=== PATIENT | male | born 1955 | race American Indian/Alaskan Native ===

== ENCOUNTER 2021-08-06 09:03 | Day surgery (SDC) | payer BC, OTHER ==
[2021-08-06] MEDS ORDERED: Dexamethasone 4 MG/ML SDV IV ONE (09:04)
[2021-08-06] MEDS ORDERED: Midazolam 1 MG/ML 2 ML SDV IV ONE (09:04)
[2021-08-06] MEDS ORDERED: Sodium Chloride 0.9% 10 ML Syringe IV ONE (09:04)
[2021-08-06] MEDS ORDERED: Moxifloxacin 0.5% Ophth Soln 3 ML Bottle EYELF ONE (10:15)
[2021-08-06] MEDS ORDERED: Povidone-Iodine 5% Sterile Ophth Soln 30 ML Bottle EYELF ONE ×2 (10:15→10:55)
[2021-08-06] MEDS ORDERED: Phenylephrine 10% Ophth Soln 5 ML Bot EYELF ONE (10:15)
[2021-08-06] MEDS ORDERED: Proparacaine 0.5% Ophth Soln 15 ML Bottle EYELF ONE (10:15)
[2021-08-06] MEDS ORDERED: Ondansetron 4 MG/2 ML SDV IVPUSH PRN (10:15)
[2021-08-06] MEDS ORDERED: Tropicamide 1% Ophth Soln 15 ML Bottle EYELF ONE (10:15)
[2021-08-06] MEDS ORDERED: Timolol Maleate 0.5% Ophth Soln 5 ML Bottle EYELF ONE (10:15)
[2021-08-06] MEDS ORDERED: Acetaminophen/Codeine 300-30 MG Tab PO PRN (10:15)
[2021-08-06] MEDS ORDERED: Cataract Ophth Solution EYELF ONE (10:15)
[2021-08-06] MEDS ORDERED: Sodium Chloride 0.9% 10 ML Syringe FLUSH PRN (10:15)
[2021-08-06] MEDS ORDERED: Acetaminophen 325 MG Tab PO PRN (10:15)
[2021-08-06] MEDS ORDERED: Tetracaine HCl/PF 0.5% 4 ML Bottle EYELF ONE (10:55)
[2021-08-06] MEDS ORDERED: Lidocaine 1% 30 ML SDV ONE (10:55)
[2021-08-06] MEDS ORDERED: Apraclonidine 0.5% Ophth Soln 5 ML Bot EYELF ONE (10:56)
[2021-08-06] MEDS ORDERED: Dexamethasone/Neomycin/Polymyxin B Ophth Oint 3.5 GM Tube EYELF ONE (10:56)
[2021-08-06] MEDS ORDERED: Balanced Salt Solution Ophth Irrig 500 ML Bottle IOCULAR ONE (10:56)
[2021-08-06] MEDS ORDERED: Diclofenac Sodium 0.1% Ophth Soln 5 ML Bottle EYELF ONE (10:56)
[2021-08-06] MEDS ORDERED: Vancomycin 500 MG SDV EYELF ONE (10:56)
[2021-08-06] MEDS ORDERED: Chondroitin Sulfate/Hyaluronate Sodium Ophth Inj 0.5 ML Syringe IOCULAR ONE (10:57)
== END 2021-08-06 12:10 | disposition home or self-care (01) ==
LOC: DL.SDS 09:03
PROVIDERS: ATTEND Ophthalmology
DX: E11.36 Type 2 diabetes mellitus with diabetic cataract (principal); H25.812 Combined forms of age-related cataract, left eye; M17.0 Bilateral primary osteoarthritis of knee; I25.10 Atherosclerotic heart disease of native coronary artery without angina pectoris; I25.2 Old myocardial infarction; I10 Essential (primary) hypertension; E78.5 Hyperlipidemia, unspecified; F43.10 Post-traumatic stress disorder, unspecified; Z87.891 Personal history of nicotine dependence
CPT/HCPCS: 00142; A9270-GY; J1100; J2250; J3370; J3490; V2632

== ENCOUNTER → 2021-10-01 | Day surgery (SDC) | payer BC, OTHER ==
[~2021-10-01] MED LIST: Acetaminophen 325 MG Tab PO PRN; Acetaminophen/Codeine 300-30 MG Tab PO PRN; Dexamethasone 4 MG/ML SDV IV ONE; Midazolam 1 MG/ML 2 ML SDV IV ONE; Ondansetron 4 MG/2 ML SDV IVPUSH PRN; Sodium Chloride 0.9% 10 ML Syringe FLUSH PRN; Tobramycin 0.3% Ophth Drops 5 ML Bottle EYELF ONE
[2021-10-01] MEDS: Proparacaine 0.5% Ophth Soln 15 ML Bottle EYERT ONE (10:35)
[2021-10-01] MEDS: Moxifloxacin 0.5% Ophth Soln 3 ML Bottle EYERT ONE (10:36)
[2021-10-01] MEDS: Povidone-Iodine 5% Sterile Ophth Soln 30 ML Bottle EYERT ONE ×2 (10:36→11:30)
[2021-10-01] MEDS: Tropicamide 1% Ophth Soln 15 ML Bottle EYERT ONE (10:38)
[2021-10-01] MEDS: Phenylephrine 10% Ophth Soln 5 ML Bot EYERT PRN (10:38)
[2021-10-01] MEDS: Timolol Maleate 0.5% Ophth Soln 5 ML Bottle EYERT ONE (10:39)
[2021-10-01] MEDS: Cataract Ophth Solution EYERT ONE (10:40)
[2021-10-01] MEDS: Tetracaine HCl/PF 0.5% 4 ML Bottle EYERT ONE (11:28)
[2021-10-01] MEDS: Lidocaine 1% 30 ML SDV ONE (11:29)
[2021-10-01] MEDS: Diclofenac Sodium 0.1% Ophth Soln 5 ML Bottle EYERT ONE (11:31)
[2021-10-01] MEDS: Apraclonidine 0.5% Ophth Soln 5 ML Bot EYERT ONE (11:31)
[2021-10-01] MEDS: Balanced Salt Solution Ophth Irrig 500 ML Bottle IOCULAR ONE (11:32)
[2021-10-01] MEDS: Vancomycin 500 MG SDV EYERT ONE (11:32)
[2021-10-01] MEDS: Dexamethasone/Neomycin/Polymyxin B Ophth Oint 3.5 GM Tube EYERT ONE (11:32)
[2021-10-01] MEDS: Chondroitin Sulfate/Hyaluronate Sodium Ophth Inj 0.75 ML Syringe EYERT ONE (11:32)
== END ==
LOC: DL.SDS 09:54
PROVIDERS: ATTEND Ophthalmology
DX: H25.811 Combined forms of age-related cataract, right eye (principal); I25.10 Atherosclerotic heart disease of native coronary artery without angina pectoris; I10 Essential (primary) hypertension; E11.9 Type 2 diabetes mellitus without complications; E78.5 Hyperlipidemia, unspecified; M17.12 Unilateral primary osteoarthritis, left knee; Z96.652 Presence of left artificial knee joint; Z87.39 Personal history of other diseases of the musculoskeletal system and connective tissue
CPT/HCPCS: 00142; A9270-GY; J1100; J2250; J3370; V2632